=== PATIENT | male | born 1965 | race Caucasian/White ===

== ENCOUNTER 2017-03-02 20:46 | Emergency (ER) | payer SELFPAY ==
[~2017-03-02] VITALS: Ht 175.3 cm; Wt 83.2 kg
[2017-03-02 20:49] VITALS: BP 137/103
== END 2017-03-02 21:16 | disposition left against medical advice (07) ==
LOC: EME 20:46
DX: R20.0 Anesthesia of skin (principal); Z53.21 Procedure and treatment not carried out due to patient leaving prior to being seen by health care provider